=== PATIENT | male | born 1955 | race Caucasian/White ===

== ENCOUNTER → 2017-04-03 | Outpatient (CLI) | payer BC ==
--- NOTE | 2017-04-03 11:17 | RADRPT ---
PROCEDURE: LEFT knee x-ray CLINICAL INDICATION: Knee pain TECHNIQUE: AP, tunnel, lateral and sunrise views of the knee were obtained. COMPARISON: None FINDINGS: There is normal mineralization. No acute fracture or dislocation is seen. There is joint space narrowing, subchondral sclerosis seen within the knee joint. There are also ost eophytes. This is more pronounced in the medial compartment. There is calcification of the menisci, consistent with chondrocalcinosis. There is no significant soft tissue swelling. RPTAT: AA IMPRESSION: Severe degenerative changes of the left knee, more pronounced in the medial compartment. Chondrocalcinosis. .Yony Felix MD, MD Date Time Electronically viewed and signed by .Yony Felix MD, on 04/03/2017 11:17 .S/
== END | disposition home or self-care (01) ==
LOC: HKI 10:01
PROVIDERS: ATTEND Orthopaedic Surgery
DX: M25.562 Pain in left knee (principal); M17.12 Unilateral primary osteoarthritis, left knee; E66.01 Morbid (severe) obesity due to excess calories; I10 Essential (primary) hypertension
CPT/HCPCS: 20610; 73564; G0463; J1030